=== PATIENT | male | born 1980 | race African-American/Black ===

== ENCOUNTER → 2018-06-04 | Outpatient (REF) | payer OTHER | LOC: M SMT 13:44 | PROVIDERS: ATTEND Specialist | DX: Z30.09 Encounter for other general counseling and advice on contraception (principal) ==

== ENCOUNTER → 2018-07-30 | Outpatient (REF) | payer OTHER ==
[2018-07-30 14:30] LABS: SEMEN APPEARANCE OPAQUE (OPAQUE); SEMEN VISCOSITY VISCOUS (LIQUID); SEMEN VOLUME 1.3 ml (4.0-5.0); WBC CONCENTRATION >1 M/ml (<=1 M/ml)
== END ==
LOC: M SMT 13:43
PROVIDERS: ATTEND Specialist
DX: Z98.52 Vasectomy status (principal)